=== PATIENT | male | born 1990 | race Caucasian/White ===

== ENCOUNTER → 2020-08-23 | Outpatient (CLI) | payer BC ==
--- NOTE | 2020-08-23 16:08 | US ---
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 Patient states his throat hurts but not like a so re throat. Patient states he had a bruise on anterior neck superior to thyroid. Area of concern in the right neck scanned. No prominent masses, fluid collections or lesions identif ied during time of exam. IMPRESSION: No sonographic abnormality in the right neck. CT neck with contrast is more sensitive.
== END | disposition home or self-care (01) ==
LOC: RADUSWWP 15:38
PROVIDERS: ATTEND Family Medicine
DX: F45.8 Other somatoform disorders (principal)
CPT/HCPCS: 76536